=== PATIENT | male | born 1995 | race Two or more races ===

== ENCOUNTER 2017-04-05 22:29 | Emergency (ER) | payer BC ==
--- NOTE | ~2017-04-05 | CT2 ---
[facility] A Service of [facility] RADIOLOGY TEXT RESULTS PATIENT: GEORGE TORRES LOCATION: [facility] : [birth year] UNIT #: [id number] AGE: [address]: Flavio Lomeli MD SEX: M ORDER DR: [id number] [place], [place] [address] [id number] MR#: [id number] Acc #: [id number] NAME: GEORGE TORRES : 1995 SEX: M STUDY DATE/TIME: 04/06/2017 2:56 UNIT: [facility] ROOM: STUDY DESCRIPTION: CT Abd and Pelv W Cont Attending Physician: Flavio Lomeli M.D. Ordering Physician: Flavio Lomeli M.D. Primary Care Physician: Primary Care Physician No MEDICAL IMAGING REPORT This report is preliminary unless electronic signature is present EXAM CT abdomen and pelvis INDICATIONS Hematochezia for 4 days. Rectal bleeding. Generalized abdominal pain with fever and nausea. FINDINGS This CT exam was performed with one or more of the following radiation dose reduction techniques: Automatic exposure control, adjustment of mA and/or kV according to patient size, and iterative reconstruction. The solid abdominal organs enhance normally. The bowel is not dilated. Gallbladder is not distended. The appendix is normal. The abdominal aorta is normal in caliber. PELVIS: No pelvic mass. The bladder is unremarkable. No enlarged pelvic or inguinal lymph nodes. No acute osseous abnormalities. IMPRESSION 1. Negative CT of the abdomen and pelvis. Dictated by... Louie Randall M.D. THIS IS AN ELECTRONICALLY VERIFIED REPORT Louie Randall M.D. at 04/06/2017 4:30 AM [facility] A Service of [facility] RADIOLOGY TEXT RESULTS PATIENT: GEORGE TORRES LOCATION: [facility] : [birth year] UNIT #: [id number] AGE: [address]: Flavio Lomeli MD SEX: M ORDER DR: TD: 04/06/2017 04:23 JOB #: [id number] MEDICAL IMAGING REPORT Page 1 of 1 COPY
[~2017-04-05 22:29] MED LIST: ILOTYCIN1 GM OD; KEFLEX500 MG PO
[2017-04-06 02:20] LABS: BASOPHIL% 0.3 % (0-2.5); EOSINOPHIL% 0.4 % (0.0-7.0); HEMATOCRIT 43.8 % (38.0-50.0); HEMOGLOBIN 14.7 gm/dL (13.0-16.0); LYMPHOCYTE# 1.8 X10e3 (1.0-3.5); MEAN CORPUSCULAR HEMOGLOBIN 30.1 PG (28-34); MEAN CORPUSCULAR HGB CONC 33.5 g/dL (30-36); MONOCYTE# 0.8 X10e3 (0-1.0); MONOCYTE% 10.5 % (3.0-12.0); NEUTROPHIL% 64.8 % (40-75); PLATELET COUNT 139 X10e3 (140-420); RED BLOOD COUNT 4.87 X10e (3.90-5.60); RED CELL DISTRIBUTION WIDTH 12.7 % (11.0-15.5); WHITE BLOOD COUNT 7.7 X10e3 (4.0-10.5)
[2017-04-06 02:21] LABS: DIFF IND NO
[2017-04-06 02:39] LABS: BUN/CREATININE RATIO 11.25; CALCIUM SERUM 8.3 mg/dL (8.4-10.2); CREATININE SERUM 0.8 mg/dL (0.6-1.4); POTASSIUM 3.3 mmol/L (3.5-5.1)
== END 2017-04-06 04:04 | disposition home or self-care (01) ==
LOC: CED 22:29
PROVIDERS: Emergency Medicine
DX: K61.1 Rectal abscess (principal)
CPT/HCPCS: 36415; 74177; 80048; 85025; 99284; Q9967